=== PATIENT | male | born 1955 | race African-American/Black ===

== ENCOUNTER 2017-12-30 04:54 | Emergency (ER) | payer OTHER ==
[~2017-12-30] VITALS: Ht 177.8 cm; Wt 114.0 kg
[2017-12-30] MEDS ORDERED: TETRACAINE 0.5% OPHTH DROPS 4ML OP ONE (07:00)
[2017-12-30] MEDS ORDERED: FLUORESCEIN SODIUM 1MG/STRIP OP ONE (07:00)
[2017-12-30 08:25] VITALS: BP 154/85
== END 2017-12-30 08:30 | disposition home or self-care (01) ==
LOC: ER 04:54
DX: T65.891A Toxic effect of other specified substances, accidental (unintentional), initial encounter (principal); S05.02XA Injury of conjunctiva and corneal abrasion without foreign body, left eye, initial encounter; H10.212 Acute toxic conjunctivitis, left eye; I10 Essential (primary) hypertension; E78.00 Pure hypercholesterolemia, unspecified; E11.9 Type 2 diabetes mellitus without complications; Y08.09XA Assault by strike by other specified type of sport equipment, initial encounter; Y93.89 Activity, other specified; Y92.89 Other specified places as the place of occurrence of the external cause; Y99.8 Other external cause status
CPT/HCPCS: 70450; 70486; 99284; Z7610

== ENCOUNTER 2020-11-25 02:40 | Inpatient (IN) | payer OTHER ==
[~2020-11-25] VITALS: Ht 167.6 cm; Wt 128.1 kg
[2020-11-25] MEDS ORDERED: NITROGLYCERIN OINT 1GM/INCH UDPKT TD ONE (03:30)
[2020-11-25 04:16] LABS: BASOPHILS % 0.4 % (0.0-2.0); EOSINOPHILS % 3.4 % (0.0-5.0); HEMATOCRIT. 36.1 % (42.0-52.0); HEMOGLOBIN. 12.2 g/dL (14.0-18.0); MEAN CORPUSCULAR HEMOGLOBIN 28.5 pg (28.0-32.0); MEAN CORPUSCULAR VOLUME 84.1 fL (80.0-94.0); MEAN PLATELET VOLUME 8.9 fl (7.4-10.4); MONOCYTES % 5.5 % (2.0-8.0); NEUTROPHILS % 65.7 % (40.0-76.0); PLATELET 183 x1000/uL (130-400); RED BLOOD CELL COUNT 4.29 mill/uL (4.7-6.1); RED CELL DISTRIBUTION WIDTH 15.4 % (11.6-14.6)
[2020-11-25 04:21] LABS: CHLORIDE 99 mEq/L (98-107)
[2020-11-25 08:00] VITALS: BP 148/73
[2020-11-25] MEDS ORDERED: HEPARIN SODIUM 1,000 UNIT/1ML VIAL IV ONE (08:00)
[2020-11-25] MEDS ORDERED: NICARDIPINE 100MCG/ML 10ML VIAL (CATH LAB) IV ONE (08:00)
[2020-11-25] MEDS ORDERED: NITROGLYCERIN 50MCG/ML 10ML VIAL (CATH LAB) IV ONE (08:00)
[2020-11-25] MEDS ORDERED: ONDANSETRON HCL 4MG/2ML INJ IV PRN (09:00)
[2020-11-25] MEDS ORDERED: DEXTROSE 50% WATER 50ML SYRINGE IV PRN (09:00)
[2020-11-25] MEDS: BLOOD SUGAR DIAGNOSTIC STRIP TEST SCH ×4 (09:30→20:40)
[2020-11-25] MEDS ORDERED: INSULIN GLARGINE UD 100 UNITS/ML SYR SUBCUT NR (10:00)
[2020-11-25] MEDS: AMLODIPINE 5MG TABLET PO SCH (11:42)
[2020-11-25] MEDS: ASPIRIN 81MG TABLET PO SCH (11:42)
[2020-11-25] MEDS: ENOXAPARIN 100MG/ML SYR SUBCUT SCH ×2 (11:42→20:38)
[2020-11-25] MEDS: INSULIN LISPRO 100 UNITS/ML SUBCUT SCH ×3 (11:44→20:39)
[2020-11-25 12:00] VITALS: BP 130/81
[2020-11-25] MEDS ORDERED: LISI2.5T47 PO (12:10)
[2020-11-25] MEDS ORDERED: INSLIS SUBCUT (12:10)
[2020-11-25] MEDS ORDERED: OMEP20CA14 PO (12:10)
[2020-11-25] MEDS ORDERED: ALBU6.7H9 INH (12:10)
[2020-11-25] MEDS ORDERED: METF-416 PO (12:10)
[2020-11-25] MEDS ORDERED: ATOR20TA PO (12:10)
[2020-11-25] MEDS ORDERED: SIMV-43 PO (12:10)
[2020-11-25] MEDS ORDERED: BALS750C6 PO (12:10)
[2020-11-25] MEDS ORDERED: ASPI-1406 PO (12:10)
[2020-11-25] MEDS ORDERED: GLIP10TA10 PO (12:10)
[2020-11-25 16:00] VITALS: BP 120/62
[2020-11-25 20:00] VITALS: BP 142/69
[2020-11-25 20:12] VITALS: BP 148/73
[2020-11-25] MEDS ORDERED: CLOPIDOGREL 75MG TABLET PO SCH (20:30)
[2020-11-25] MEDS: ATORVASTATIN CALCIUM 40MG TABLET PO SCH (20:38)
[2020-11-25] MEDS ORDERED: ATORVASTATIN CALCIUM 40MG TABLET PO SCH (21:00)
[2020-11-25 21:31] LABS: *AMPHETAMINES SCREEN URINE NEGATIVE (NEGATIVE); *BARBITURATES SCREEN URINE NEGATIVE (NEGATIVE); *BENZODIAZEPINES SCREEN URINE NEGATIVE (NEGATIVE); *COCAINE SCREEN URINE NEGATIVE (NEGATIVE); METHADONE URINE SCREEN NEGATIVE (NEGATIVE); OPIATES URINE SCREEN NEGATIVE (NEGATIVE)
[2020-11-25 21:32] LABS: CANNABINOID URINE SCREEN NEGATIVE (NEGATIVE); PHENCYCLIDINE URINE SCREEN NEGATIVE (NEGATIVE)
[2020-11-25] MEDS ORDERED: INSULIN GLARGINE UD 100 UNITS/ML SYR SUBCUT SCH ×2 (22:00)
[2020-11-26] VITALS (15 sets, daily range): BP systolic 107–149; BP diastolic 53–80
[2020-11-26] MEDS: INSULIN LISPRO 100 UNITS/ML SUBCUT SCH ×4 (05:54→21:24)
[2020-11-26] MEDS: BLOOD SUGAR DIAGNOSTIC STRIP TEST SCH ×4 (05:54→21:09)
[2020-11-26] MEDS ORDERED: IOHEXOL-300 100 ML BOTTLE ONE (07:27)
[2020-11-26] MEDS ORDERED: LIDOCAINE HCL 1% 20ML VIAL (Pyxis) INJ ONE ×2 (07:27→07:35)
[2020-11-26] MEDS ORDERED: IODIXANOL 320MG/ML 200ML BOTTLE ONE (07:28)
[2020-11-26] MEDS ORDERED: SODIUM BICARBONATE 4% (2.4MEQ) 5ML VIAL IV ONE (07:35)
[2020-11-26 07:50] LABS: BASOPHILS % 0.4 % (0.0-2.0); EOSINOPHILS % 4.1 % (0.0-5.0); HEMATOCRIT. 38.5 % (42.0-52.0); HEMOGLOBIN. 12.7 g/dL (14.0-18.0); MEAN CORPUSCULAR HEMOGLOBIN 27.4 pg (28.0-32.0); MEAN CORPUSCULAR VOLUME 83.5 fL (80.0-94.0); MEAN PLATELET VOLUME 9.2 fl (7.4-10.4); MONOCYTES % 7.1 % (2.0-8.0); NEUTROPHILS % 62.4 % (40.0-76.0); PLATELET 198 x1000/uL (130-400); RED BLOOD CELL COUNT 4.61 mill/uL (4.7-6.1); RED CELL DISTRIBUTION WIDTH 15.2 % (11.6-14.6)
[2020-11-26 07:52] LABS: CHLORIDE 101 mEq/L (98-107)
[2020-11-26] MEDS ORDERED: MIDAZOLAM HCL 2 MG/2 ML VIAL ONE (08:09)
[2020-11-26] MEDS ORDERED: FENTANYL CITRATE/PF 50MCG/ML 2ML VIAL ONE (08:10)
[2020-11-26] MEDS ORDERED: SODIUM CHLORIDE 0.45% 250 ML IV ONE (09:45)
[2020-11-26] MEDS ORDERED: ATROPINE SULFATE 1MG/10ML SYR IV PRN (09:45)
[2020-11-26 10:14] LABS: CHLORIDE 102 mEq/L (98-107)
[2020-11-26] MEDS: ASPIRIN 81MG TABLET PO SCH (11:18)
[2020-11-26] MEDS: ENOXAPARIN 100MG/ML SYR SUBCUT SCH ×2 (11:18→21:09)
[2020-11-26] MEDS: AMLODIPINE 5MG TABLET PO SCH (11:19)
[2020-11-26] MEDS: SODIUM CHLORIDE 0.45% 250 ML IV NR ×2 (11:35→13:45)
[2020-11-26] MEDS: ACETAMINOPHEN 325MG TABLET PO PRN (11:35)
[2020-11-26] MEDS ORDERED: INSULIN GLARGINE UD 100 UNITS/ML SYR SUBCUT SCH (12:00)
[2020-11-26] MEDS: METOPROLOL TARTRATE 25MG TABLET PO SCH (21:09)
[2020-11-26] MEDS: ATORVASTATIN CALCIUM 40MG TABLET PO SCH (21:09)
[2020-11-26] MEDS: INSULIN GLARGINE UD 100 UNITS/ML SYR SUBCUT SCH (21:27)
[2020-11-26] MEDS ORDERED: PANTOPRAZOLE 40MG DR TABLET PO NR (22:45)
[2020-11-27] VITALS (11 sets, daily range): BP systolic 104–145; BP diastolic 50–87
[2020-11-27 07:04] LABS: BASOPHILS % 0.4 % (0.0-2.0); EOSINOPHILS % 3.8 % (0.0-5.0); HEMATOCRIT. 37.2 % (42.0-52.0); HEMOGLOBIN. 12.5 g/dL (14.0-18.0); LYMPHOCYTES % 30.3 % (20.0-50.0); MEAN CORPUSCULAR HEMOGLOBIN 27.8 pg (28.0-32.0); MEAN CORPUSCULAR VOLUME 82.8 fL (80.0-94.0); MEAN PLATELET VOLUME 9.2 fl (7.4-10.4); MONOCYTES % 8.2 % (2.0-8.0); NEUTROPHILS % 57.3 % (40.0-76.0); PLATELET 207 x1000/uL (130-400); RED BLOOD CELL COUNT 4.49 mill/uL (4.7-6.1); RED CELL DISTRIBUTION WIDTH 14.8 % (11.6-14.6)
[2020-11-27 07:08] LABS: CHLORIDE 101 mEq/L (98-107)
[2020-11-27] MEDS: BLOOD SUGAR DIAGNOSTIC STRIP TEST SCH ×3 (07:24→17:14)
[2020-11-27] MEDS: ASPIRIN 81MG TABLET PO SCH (08:20)
[2020-11-27] MEDS: INSULIN LISPRO 100 UNITS/ML SUBCUT SCH ×3 (08:21→17:20)
[2020-11-27] MEDS: ENOXAPARIN 100MG/ML SYR SUBCUT SCH (08:21)
[2020-11-27] MEDS: AMLODIPINE 5MG TABLET PO SCH (08:22)
[2020-11-27] MEDS: METOPROLOL TARTRATE 25MG TABLET PO SCH (08:23)
[2020-11-27] MEDS ORDERED: PANTOPRAZOLE 40MG DR TABLET PO SCH (09:00)
[2020-11-27] MEDS: INSULIN GLARGINE UD 100 UNITS/ML SYR SUBCUT SCH (12:26)
[2020-11-27] MEDS: ACETAMINOPHEN 325MG TABLET PO PRN (16:17)
== END 2020-11-27 18:55 | disposition short-term general hospital (02) | DRG 281 ==
LOC: ER 02:40 → 5WST 04:58 → ENRESERV 08:32 → 3WST 11-26 09:28
PROVIDERS: ADMIT Internal Medicine; ATTEND Internal Medicine
PROC: 4A023N7 Measurement of Cardiac Sampling and Pressure, Left Heart, Percutaneous Approach (ICD-10-PCS; principal; 2020-11-26)
PROC: B211YZZ Fluoroscopy of Multiple Coronary Arteries using Other Contrast (ICD-10-PCS; 2020-11-26)
PROC: B41FYZZ Fluoroscopy of Right Lower Extremity Arteries using Other Contrast (ICD-10-PCS; 2020-11-26)
DX: I21.4 Non-ST elevation (NSTEMI) myocardial infarction (principal); Z68.42 Body mass index [BMI] 45.0-49.9, adult; E87.1 Hypo-osmolality and hyponatremia; I25.84 Coronary atherosclerosis due to calcified coronary lesion; I25.10 Atherosclerotic heart disease of native coronary artery without angina pectoris; D64.9 Anemia, unspecified; E11.65 Type 2 diabetes mellitus with hyperglycemia; E66.01 Morbid (severe) obesity due to excess calories; E78.5 Hyperlipidemia, unspecified; I10 Essential (primary) hypertension; Z86.16 Personal history of COVID-19; Z20.822 Contact with and (suspected) exposure to COVID-19; E78.00 Pure hypercholesterolemia, unspecified; Z71.3 Dietary counseling and surveillance; Z79.899 Other long term (current) drug therapy; Z79.82 Long term (current) use of aspirin; Z79.4 Long term (current) use of insulin; Z79.51 Long term (current) use of inhaled steroids
CPT/HCPCS: 36415; 71045; 80048; 80053; 80061; 80305; 82962; 83036; 83880; 84443; 84484; 85025; 87426; 93005; 93306; 93458; 93970; 99285; C1760; C1769; C1887; C1893; J1644; J1650; J1815; J2250; J3010; J3490; Q9967